=== PATIENT | female | born 1975 | race African-American/Black ===

== ENCOUNTER → 2017-12-16 | Outpatient (CLI) | payer OTHER | LOC: RAD 10:08 | DX: K21.9 Gastro-esophageal reflux disease without esophagitis (principal); Q89.8 Other specified congenital malformations ==

== ENCOUNTER → 2018-01-21 | Outpatient (CLI) | payer OTHER ==
[~2018-01-21] VITALS: Ht 157.5 cm; Wt 156.5 kg
--- NOTE | ~2018-01-21 | O ---
[facility] [place] [address] OPERATIVE REPORT Name: BEN SOTELO Room #: REG MARIA ISABEL EstrellaMarijaNinaMarija#: [id number] Admission: 01/21/18 Attend Phys: Marty Saucedo MD, Discharge: Date of : 75 Report #: [id number] THIS REPORT FOR: //name// CC: NADIYA physician/PCP Marty Saucedo DATE OF SERVICE: 01/21/2018 PREOPERATIVE DIAGNOSES: 1. Status post Deb-en-Y gastric bypass with weight regain. 2. Gastroesophageal reflux disease. POSTOPERATIVE DIAGNOSES: 1. Status post Deb-en-Y gastric bypass with weight regain. 2. Gastroesophageal reflux disease with esophagitis. 3. Gastritis. 4. Gastrogastric fistula. PROCEDURE PERFORMED: Thorough esophagogastroduodenoscopy (EGD). SURGEON: Marty Saucedo M.D. RADIO STATION AUDIO ENGINEER: None. ANESTHESIA: Monitored anesthesia care. ESTIMATED BLOOD LOSS: None. COMPLICATIONS: None. SPECIMENS: None. INDICATIONS: The patient is a 42-year-old super morbidly obese -[place] female who has undergone a Deb-en-Y gastric bypass in the remote past with initial weight loss of nearly 150 pounds and unfortunately, she has regained all of her weight as of late. In addition, the patient has been battling mild reflux symptoms and indication was therefore for an EGD. DESCRIPTION OF PROCEDURE: After explaining the risks, benefits and alternatives of the procedure with the patient in detail and obtaining consent, the patient was brought to the endoscopy suite and placed supine on the hospital bed. After conducting a thorough timeout procedure verifying correct patient and procedure, the patient was given monitored anesthesia care. Once adequate anesthesia was obtained, the [facility] upper endoscope was used to intubate the oropharynx, was easily traversed down into the esophagus. In the distal esophagus, we saw marked erythema at the gastroesophageal juncture. Once entering into the [facility] [address] [place] [address] OPERATIVE REPORT Name: JAVIER YEEBEN Room #: REG [facility].#: [id number] Admission: 01/21/18 Attend Phys: Marty Saucedo MD, Discharge: Date of : 75 Report #: [id number] gastric pouch, there were 2 lumens evident, one to the left and one to the right. Traversing into the lumen on the right, allowed me to enter into what appeared to be the Deb limb with normal appearing small bowel mucosa. The scope was advanced as far distally as possible, and I was not able to reach the enteric anastomosis. No evidence of bile reflux. Slow withdrawal within the Deb limb allowed me to enter back into the gastric pouch where the left lateral lumen was easily intubated. This passageway was equally as wide as the gastrojejunal anastomosis and allowed me to enter into the large saccular gastric body. The scope was advanced to the pylorus where there was marked erythema. I was able to enter into the pylorus and into the second portion of the duodenum. Slow and careful withdrawal of the scope showed no evidence of duodenitis, however, there was the market gastritis. No biopsy forceps was available at this time; therefore specimens were not obtained. Slow and careful withdrawal showed a normal gastric body that was markedly dilated, consistent with her morbid obesity. The scope was used to fully desufflate the gastric body. Withdrawing back into the gastric pouch showed a generously sized pouch as well. Again, slow withdrawal into the distal esophagus showed marked esophagitis with erythema, but no Cherry's changes were seen. Slow and careful withdrawal of the scope removed via the oropharynx, completing the procedure. At the end of the procedure, all instrument, needle and sponge counts were correct. The patient tolerated the procedure without incident. She was awakened in the endoscopy suite and transitioned to the recovery room in stable condition with no apparent complications. We will now proceed with an H. pylori blood test as well as obtain an upper GI swallow. <ELECTRONICALLY SIGNED> By: Marty Saucedo MD, FACS 01/21/18 [id number] [id number] Marty Saucedo MD, FACS /nt
== END | disposition home or self-care (01) ==
LOC: GI 06:23
DX: K21.0 Gastro-esophageal reflux disease with esophagitis (principal); K29.70 Gastritis, unspecified, without bleeding; Z98.84 Bariatric surgery status; Z98.0 Intestinal bypass and anastomosis status; E66.01 Morbid (severe) obesity due to excess calories; Z68.44 Body mass index [BMI] 60.0-69.9, adult; D64.9 Anemia, unspecified; G40.909 Epilepsy, unspecified, not intractable, without status epilepticus; Z90.710 Acquired absence of both cervix and uterus; Z98.890 Other specified postprocedural states
CPT/HCPCS: 62110; 62900

== ENCOUNTER → 2018-03-24 | Outpatient (CLI) | payer OTHER | LOC: CAT 09:31 | DX: R11.0 Nausea (principal); Z90.710 Acquired absence of both cervix and uterus; Z90.49 Acquired absence of other specified parts of digestive tract ==